=== PATIENT | male | born 1955 | race Two or more races ===

== ENCOUNTER 2018-10-30 10:48 | Outpatient (CLI) | payer OTHER | END 2018-10-30 11:25 | disposition home or self-care (01) | LOC: RAD 501 10:48 | DX: R07.89 Other chest pain (principal); Z01.818 Encounter for other preprocedural examination ==

== ENCOUNTER 2018-10-30 11:21 | Outpatient (CLI) | payer OTHER | END 2018-10-30 11:28 | disposition home or self-care (01) | LOC: EKG 11:21 | DX: I10 Essential (primary) hypertension (principal) ==

== ENCOUNTER → 2025-04-19 07:25 | Outpatient (CLI) | payer OTHER | END | disposition home or self-care (01) | LOC: NUCLEAR 04-05 07:00 | PROVIDERS: ATTEND Internal Medicine | DX: I20.9 Angina pectoris, unspecified (principal) ==